=== PATIENT | male | born 1940 | race Caucasian/White ===

== ENCOUNTER 2017-01-15 15:32 | Emergency (ER) | payer MEDICAID ==
[~2017-01-15] VITALS: Ht 172.7 cm; Wt 78.0 kg
[2017-01-15] MEDS ORDERED: NORVASC PO (15:59)
[2017-01-15] MEDS ORDERED: DOCUSATE SODIUM 100 MG/10 ML LIQUID UDC OT ONE (16:45)
[2017-01-15] MEDS ORDERED: DOCUSATE SODIUM 100 MG/10 ML LIQUID UDC ONE (17:00)
--- NOTE | 2017-01-15 17:45 | NUR ---
sujey silverman irrigated both ears, pieces of cerumen came out. pt tolerated well.
--- NOTE | 2017-01-15 17:52 | NUR ---
Patient discharged to home in stable conditon. Written and verbal after care instructions given. Patient verbalizes understanding of instructions.pt walks in steady gait, deneis any dizziness.
[2017-01-15 17:54] VITALS: BP 109/56
== END 2017-01-15 17:54 | disposition home or self-care (01) ==
LOC: ER 15:33
DX: H61.23 Impacted cerumen, bilateral (principal)
CPT/HCPCS: A4663